=== PATIENT | female | born 1985 | race Hispanic/Latino ===

== ENCOUNTER 2018-04-08 21:48 | Emergency (ER) | payer OTHER ==
[2018-04-08 22:20] LABS: Absolute Lymphocytes (CBC) 3.1 K/uL (0.7-4.9); Absolute Monocytes 0.5 K/uL (0.1-1.3); Absolute Neutrophil 3.9 K/uL (1.8-8.0); Basophils % 0.5 % (0-1.3); Hematocrit 40.6 % (36.0-45.0); Lymphocytes % 38.9 % (15.3-44.8); Monocytes % 6.6 % (3.3-12.3); RBC Red Blood Cell Count 4.54 M/uL (3.86-4.86)
[2018-04-08 22:22] LABS: Protime INR 0.88
[2018-04-08 22:36] LABS: ALT/SGPT 22 U/L (12-78); AST/SGOT 16 U/L (15-37); Alkaline Phosphatase 90 U/L (45-117); BUN Blood Urea Nitrogen 21 mg/dL (7-18); Bicarbonate 25 mmol/L (21-32); Bilirubin Direct < 0.1 mg/dL (0-0.2); Bilirubin Total 0.2 mg/dL (0.2-1.0); Glucose Level 95 mg/dL (74-106); Magnesium 2.4 mg/dL (1.8-2.4); NT PRO-BNP 10 pg/mL (<125); Potassium 3.9 mmol/L (3.5-5.1); Protein, Total 7.8 g/dL (6.4-8.2); Sodium Level 140 mmol/L (136-145); Troponin (Emerg Dept Use Only) < 0.02 ng/mL (0.0-0.045)
[2018-04-08 23:24] LABS: Urine Blood NEGATIVE (NEG); Urine Glucose NEGATIVE (NEG); Urine Protein NEGATIVE (NEG); Urine pH 6.5 (5.0-7.0)
--- NOTE | 2018-04-09 02:43 | ER ---
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 Reports dull, squeezing pain that has now improved to a 2/10. Also reports an episode of SOB and nausea with a hot flash sensation approx 30 mins after her pain began which has since resolved. Transition of care: patient was not received from another setting of care. Onset of symptoms was April 08, 2018. Risk Assessment: Do you want to hurt yourself or someone else? Patient reports no desire to harm self or others. Initial Sepsis Screen: Does the patient meet any 2 criteria? No. Patient's initial sepsis screen is negative. Does the patient have a suspected source of infection? No. Patient's initial sepsis screen is negative. Care prior to arrival: None. 21:56 Method Of Arrival: Ambulatory aa1 21:56 Acuity: CARISSA 2 aa1 Triage Assessment: 22:07 General: Appears in no apparent distress. comfortable, Behavior is calm, cooperative, aa1 appropriate for age. 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 - Social history:: Smoking status: Patient/guardian denies using tobacco. - Ebola Screening: : No symptoms or risks identified at this time. Screenin:13 Abuse screen: Denies threats or abuse. Denies injuries from another. Nutritional mg2 screening: No deficits noted. Tuberculosis screening: No symptoms or risk factors identified. Fall Risk IV access (20 points). Assessment: 22:11 General: Appears in no apparent distress. comfortable, Behavior is calm, cooperative. mg2 Pain: Complains of pain in chest Pain radiates to left arm Pain currently is 4 out of 10 on a pain scale. Quality of pain is described as pressure, Pain began gradually, 3 hours ago. Is continuous. Neuro: Level of Consciousness is awake, alert, obeys commands, Oriented to person, place, time, situation. Cardiovascular: Capillary refill < 3 seconds Patient's skin is warm and dry. Chest pain is described as vague, Pain is 4 out of 10 on a pain scale. quality is pressure, is located in left radiates to left arm(s) began 3 hours prior to arrival episodes are intermittent. Respiratory: Airway is patent Respiratory effort is even, unlabored, Respiratory pattern is regular, symmetrical. GI: No signs and/or symptoms were reported involving the gastrointestinal system. : No signs and/or symptoms were reported regarding the genitourinary system. EENT: Derm: Skin is intact, is healthy with good turgor, Skin is pink, warm \T\ dry. black. Musculoskeletal: No signs and/or symptoms reported regarding the musculoskeletal system. 23:25 Reassessment: Patient appears in no apparent distress at this time. Patient and/or mg2 family updated on plan of care and expected duration. Pain level reassessed. Patient is alert, oriented x 3, equal unlabored respirations, skin warm/dry/pink. 04/09 02:00 Reassessment: Patient appears in no apparent distress at this time. Patient and/or mg2 family updated on plan of care and expected duration. Pain level reassessed. Patient is alert, oriented x 3, equal unlabored respirations, skin warm/dry/pink. 02:50 Reassessment: Patient appears in no apparent distress at this time. Patient is alert, aa1 oriented x 3, equal unlabored respirations, skin warm/dry/pink. Discussed d/c \T\ f/u instructions with pt; denies questions or concerns at this time Patient denies pain at this time. Patient states feeling better. Vital Signs: 04/08 22:07 BP 134 / 94; Pulse 85; Resp 18; Temp 99(O); Pulse Ox 100% on R/A; Weight 74.84 kg; mg2 Height 5 ft. 0 in. (152.40 cm); Pain 2/10; 23:25 BP 98 / 72; Pulse 71; Resp 18; Pulse Ox 98% on R/A; Pain 0/10; mg2 04/09 01:02 BP 108 / 72; Pulse 69; Resp 18; Pulse Ox 99% on R/A; Pain 0/10; mg2 02:00 BP 118 / 77; Pulse 70; Resp 18; Pulse Ox 100% on R/A; Pain 0/10; mg2 04/08 22:07 Body Mass Index 32.22 (74.84 kg, 152.40 cm) mg2 ED Course: 04/08 21:51 Patient arrived in ED. ag3 21:54 Faheem Juarez NP is PHCP. pm1 21:54 Musa Hollis MD is Attending Physician. pm1 22:05 Triage completed. aa1 22:07 Arm band placed on right wrist. aa1 22:11 Maurizio Fernandez, RN is Primary Nurse. mg2 22:13 Patient has correct armband on for positive identification. Pulse ox on. NIBP on. mg2 22:13 No provider procedures requiring assistance completed. Inserted saline lock: 20 gauge mg2 in right antecubital area, using aseptic technique. Blood collected. 22:13 Patient maintains SpO2 saturation greater than 95% on room air. mg2 22:16 XRAY Chest (1 view) In Process Unspecified. EDMS 04/09 02:00 Repeat lab(s) drawn. by ma, sent to lab. mg2 02:50 IV discontinued, intact, bleeding controlled, No redness/swelling at site. Pressure aa1 dressing applied. Administered Medications: No medications were administered Outcome: 02:43 Discharge ordered by MD. pm1 02:50 Discharged to home ambulatory, with significant other. aa1 02:50 Condition: good 02:50 Discharge instructions given to patient, Instructed on discharge instructions, follow up and referral plans. Demonstrated understanding of instructions, follow-up care. 02:51 Patient left the ED. aa1 Signatures: Dispatcher [employer] EDVA Bree Person RN RN aa1 Faheem Juarez NP SUPERVISOR PAINTING SHIPYARD pm1 Maurizio Fernandez, LIU RN mg2 Mahnaz Jaramillo ag3 Corrections: (The following items were deleted from the chart) 04/08 22:12 22:07 BP 134 / 94; Pulse 85bpm; Resp 18bpm; Pulse Ox 100% RA; 74.84 kg; Height 5 ft. 0 mg2 in.; BMI: 32.2; Pain 2/10; aa1 22:14 22:11 Cardiovascular: Capillary refill < 3 seconds Patient's skin is warm and dry. mg2 mg2
--- NOTE | 2018-04-09 02:43 | EDPHYS ---
Physician Documentation [facility] Name: Jaimee Polanco Age: 32 yrs Sex: Female : 1985 Arrival Date: 04/08/2018 Time: 21:51 Bed 27 Private MD: ED Physician Musa Hollis HPI: 04/08 23:00 This 32 yrs old Female presents to ER via Ambulatory with complaints of Chest pm1 Pain. 23:00 The patient or guardian reports chest pain that is located primarily in the anterior pm1 aspect of left upper chest. The pain radiates to the left arm. Associated signs and symptoms: Pertinent positives: shortness of breath, Pertinent negatives: abdominal pain, cough, diaphoresis, dizziness, nausea, palpitations, vomiting. Duration: The patient or guardian reports a single episode, that is now resolved. Modifying factors: The symptoms are alleviated by nothing. the symptoms are aggravated by nothing. Severity of pain: in the emergency department the pain is a 0 / 10. The patient has not experienced similar symptoms in the past. The patient has not recently seen a physician. 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 - Social history:: Smoking status: Patient/guardian denies using tobacco. - Ebola Screening: : No symptoms or risks identified at this time. ROS: 23:00 Constitutional: Negative for fever, chills, and weight loss, Eyes: Negative for injury, pm1 pain, redness, and discharge, ENT: Negative for injury, pain, and discharge, Neck: Negative for injury, pain, and swelling. 23:00 Abdomen/GI: Negative for abdominal pain, nausea, vomiting, diarrhea, and constipation, Back: Negative for injury and pain, : Negative for injury, bleeding, discharge, and swelling, MS/Extremity: Negative for injury and deformity, Skin: Negative for injury, rash, and discoloration, Neuro: Negative for headache, weakness, numbness, tingling, and seizure. 23:00 Cardiovascular: Positive for chest pain, Negative for edema, orthopnea, palpitations. 23:00 Respiratory: Positive for shortness of breath, Negative for cough, dyspnea on exertion, sputum production, wheezing. Exam: 23:00 Constitutional: This is a well developed, well nourished patient who is awake, alert, pm1 and in no acute distress. Head/Face: Normocephalic, atraumatic. Eyes: Pupils equal round and reactive to light, extra-ocular motions intact. Lids and lashes normal. Conjunctiva and sclera are non-icteric and not injected. Cornea within normal limits. Periorbital areas with no swelling, redness, or edema. ENT: Nares patent. No nasal discharge, no septal abnormalities noted. Tympanic membranes are normal and external auditory canals are clear. Oropharynx with no redness, swelling, or masses, exudates, or evidence of obstruction, uvula midline. Mucous membranes moist. Neck: Trachea midline, no thyromegaly or masses palpated, and no cervical lymphadenopathy. Supple, full range of motion without nuchal rigidity, or vertebral point tenderness. No Meningismus. Chest/axilla: Normal chest wall appearance and motion. Nontender with no deformity. No lesions are appreciated. Cardiovascular: Regular rate and rhythm with a normal S1 and S2. No gallops, murmurs, or rubs. Normal PMI, no JVD. No pulse deficits. Respiratory: Lungs have equal breath sounds bilaterally, clear to auscultation and percussion. No rales, rhonchi or wheezes noted. No increased work of breathing, no retractions or nasal flaring. Abdomen/GI: Soft, non-tender, with normal bowel sounds. No distension or tympany. No guarding or rebound. No evidence of tenderness throughout. Back: No spinal tenderness. No costovertebral tenderness. Full range of motion. Skin: Warm, dry with normal turgor. Normal color with no rashes, no lesions, and no evidence of cellulitis. MS/ Extremity: Pulses equal, no cyanosis. Neurovascular intact. Full, normal range of motion. 23:00 Neuro: Orientation: is normal, Motor: is normal, Sensation: is normal, no obvious gross deficits, Gait: is steady, at a normal pace, without difficulty. Vital Signs: 22:07 BP 134 / 94; Pulse 85; Resp 18; Temp 99(O); Pulse Ox 100% on R/A; Weight 74.84 kg; mg2 Height 5 ft. 0 in. (152.40 cm); Pain 2/10; 23:25 BP 98 / 72; Pulse 71; Resp 18; Pulse Ox 98% on R/A; Pain 0/10; mg2 01 01:02 BP 108 / 72; Pulse 69; Resp 18; Pulse Ox 99% on R/A; Pain 0/10; mg2 02:00 BP 118 / 77; Pulse 70; Resp 18; Pulse Ox 100% on R/A; Pain 0/10; mg2 04/08 22:07 Body Mass Index 32.22 (74.84 kg, 152.40 cm) mg2 MDM: 04/08 22:00 Patient medically screened. pm1 04/09 01:17 Data reviewed: vital signs. Data interpreted: Pulse oximetry: on room air is 99 %. pm1 Interpretation: normal. 02:41 MARITZA Risk Score: TOTAL SCORE = 0. pm1 02:41 Counseling: I had a detailed discussion with the patient and/or guardian regarding: the pm1 historical points, exam findings, and any diagnostic results supporting the discharge/admit diagnosis, lab results, radiology results, the need for outpatient follow up, to return to the emergency department if symptoms worsen or persist or if there are any questions or concerns that arise at home. 04/08 22:00 Order name: Basic Metabolic Panel; Complete Time: 23:54 pm1 04/08 22:00 Order name: CBC with Diff; Complete Time: 23:54 pm1 04/08 22:00 Order name: LFT's; Complete Time: 23:54 pm04/08 22:00 Order name: Magnesium; Complete Time: 23:54 pm04/08 22:00 Order name: NT PRO-BNP; Complete Time: 23:54 pm1 04/08 22:00 Order name: PT-INR; Complete Time: 23:54 pm1 04/08 22:00 Order name: Troponin (emerg Dept Use Only); Complete Time: 23:54 pm1 04/08 22:00 Order name: XRAY Chest (1 view) pm1 04/08 22:00 Order name: EKG; Complete Time: 22:01 pm1 04/08 22:00 Order name: Cardiac monitoring; Complete Time: 22:14 pm04/08 22:00 Order name: EKG - Nurse/Tech; Complete Time: 22:15 pm1 04/08 22:27 Order name: Urine Dipstick--Ancillary (enter results); Complete Time: 23:54 mw2 04/08 22:27 Order name: Urine --Ancillary (enter results); Complete Time: 23:54 mw2 04/08 23:58 Order name: Troponin (emerg Dept Use Only); Complete Time: 02:41 mg2 04/08 22:00 Order name: IV Saline Lock; Complete Time: 22:15 pm04/08 22:00 Order name: Labs collected and sent; Complete Time: 22:15 pm04/08 22:00 Order name: O2 Per Protocol; Complete Time: 22:15 pm04/08 22:00 Order name: O2 Sat Monitoring; Complete Time: 22:15 pm04/08 22:00 Order name: Urine Dipstick-Ancillary (obtain specimen); Complete Time: 22:25 pm04/08 22:00 Order name: Urine Test (obtain specimen); Complete Time: 22:25 pm04/08 23:58 Order name: Repeat Cardiac Enzymes at: 0200H; Complete Time: 02:03 mg2 Administered Medications: No medications were administered Disposition: 02:55 Co-signature as Attending Physician, Musa Hollis MD. ma2 Disposition: 04/09/18 02:43 Discharged to Home. Impression: Chest pain, unspecified. - Condition is Stable. - Discharge Instructions: Nonspecific Chest Pain. - Medication Reconciliation Form, Thank You Letter form. - Follow up: Emergency Department; When: As needed; Reason: Worsening of condition. Follow up: Private Physician; When: 2 - 3 days; Reason: Recheck today's complaints, Continuance of care, Re-evaluation by your physician. - Problem is new. - Symptoms have improved. Signatures: Dispatcher [employer] EDBree Dougherty RN RN aa1 Faheem Juarez, AUTOPSY ASSISTANT AUTOPSY ASSISTANT pm1 Musa Hollis MD MD ma2 Maurizio Fernandez RN RN mg2 Corrections: (The following items were deleted from the chart) 02:51 02:43 04/09/2018 02:43 Discharged to Home. Impression: Chest pain, unspecified. aa1 Condition is Stable. Forms are Medication Reconciliation Form, Thank You Letter, Antibiotic Education, Prescription Opioid Use. Follow up: Emergency Department; When: As needed; Reason: Worsening of condition. Follow up: Private Physician; When: 2 - 3 days; Reason: Recheck today's complaints, Continuance of care, Re-evaluation by your physician. Problem is new. Symptoms have improved. pm1
--- NOTE | 2018-04-09 06:55 | EKG ---
Test Date: 2018-04-08 Test Time: 22:01:03 Dental Assistant Medical Assistant: MEASUREMENT RESULTS: Intervals: Rate: 75 OH: 170 QRSD: 90 QT: 364 QTc: 406 [place]: P: 69 OH: 170 QRS: 44 T: 56 INTERPRETIVE STATEMENTS: Normal sinus rhythm Cannot rule out Anterior infarct, age undetermined Abnormal ECG No previous ECG available for comparison Electronically Signed On 04-09-18 06:54:42 DESIGN PRINTER BALLOON by Danilo Pitts
--- NOTE | 2018-04-09 08:05 | RAD REPORT ---
EXAM DESCRIPTION: RAD - Chest Single View - 04/08/2018 10:16 pm CLINICAL HISTORY: CHEST PAIN Chest pain. COMPARISON: No comparisons FINDINGS: Portable technique limits examination quality. The lungs are grossly clear. The heart is normal in size. No displaced fractures. IMPRESSION: No acute intrathoracic process suspected.
== END 2018-04-09 02:51 | disposition home or self-care (01) ==
LOC: ER 21:48
DX: R07.9 Chest pain, unspecified (principal); R94.31 Abnormal electrocardiogram [ECG] [EKG]
CPT/HCPCS: 36415; 71045; 80048; 80076; 81003; 81025; 83735; 83880; 84484; 85025; 85610; 93005; 99284